=== PATIENT | female | born 1955 | race Caucasian/White ===

== ENCOUNTER → 2020-07-18 | Outpatient (CLI) | payer MEDICARE ==
[2020-07-05 14:57] VITALS: BP 118/72
[~2020-07-18] MED LIST: ACET500T68 PO; BACL20TA PO; CEPH500T PO; DAPT350V IV; DEXT10CA PO; DIAZ2TAB3 PO; DIAZ5TAB4 PO; FLUO40CA2 PO; FURO40TA4 PO; Hydrocodone/Acetaminophen PO; LACT1CAP19 PO; MERO500V24 IV; METH2.5T PO; OXYB5TAB10 PO; TRIA1TAB3 PO
[2020-07-18] MEDS: IOHEXOL 300 MG/ML 100ML VIAL. IV ONE (12:40)
--- NOTE | 2020-07-19 17:00 | RAD ---
Exam: CT abdomen/pelvis with intravenous contrast Indication: Liver abscess Comparison: CT abdomen and pelvis 06/30/2020 Technique: Helical CT imaging performed of the abdomen and pelvis after the intravenous administratio n of 75 mm Omnipaque 300 contrast. Sagittal and coronal reformats were obtained. One or more of the following individualized dose reduction techniques were utilized for this examinat ion: 1. Automated exposure control 2. Adjustment of the mA and/or kV according to patient size 3. Use of iterative reconstruction technique. Findings: Lower chest: Trace left pleural effusions and adjacent atelectasis, slightly increased on the. A 6 mm pulmonary nodule in the right lower lobe is unchanged. There is calcified granuloma in the left uppe r lobe. Mild emphysema. The heart is normal in size. There are coronary artery calcifications. Liver: There is a new anterior percutaneous drainage catheter in the left hepatic lobe. The previousl y seen abscess has decreased. Small residual fluid collection near the pigtail catheter measuring 3 x 1.7 cm. Previously 4.3 x 3.7 cm. Pneumobilia is redemonstrated. Gallbladder/Biliary Tree: Cholelithiasis and cholecystitis. Marked gallbladder wall thickening has sl ightly decreased. There is a tiny focus of gas in the gallbladder lumen. Increased dilation of common bile duct measuring 5 mm. There is a tiny hyperdensity within the common bile duct and intrapancreat ic portion suspicious for choledocholithiasis. There is edema along the pancreaticoduodenal groove. Pancreas: Unremarkable. Spleen: The spleen is enlarged measuring 16.2 cm cranial caudally. Adrenal Glands: Unchanged 2 cm intermediate density left adrenal nodule. Right adrenal gland is sukhjinder l. Kidneys/proximal ureters: Kidneys are normal in size and enhance symmetrically. No hydronephrosis. Pr oximal ureters are normal. Stomach and visualized portion of bowel: Small hiatal hernia. Stomach is normal. Vasculature: Abdominal aorta is normal in caliber. Lymph Nodes: No lymphadenopathy. Peritoneum and retroperitoneum: No free fluid or free air. Bones: No acute osseous abnormality. There is sequela of vertebroplasty at L1. Spinal stimulator ida ce noted in the dorsal thoracic canal. Impression: 1. Interval placement of percutaneous drain in the hepatic abscess, which has decreased in size. 2. Cholelithiasis and acute cholecystitis with marked gallbladder wall thickening, slightly decrease d from the prior exam. Suspected new choledocholithiasis with a 3 mm calculus in the intrapancreatic common bile duct. There is also a new tiny focus of gas in the gallbladder lumen. 3. Unchanged indeterminant left adrenal nodule. 4. Splenomegaly. 5. Unchanged 6 mm nodule in the right lower lobe. Electronically signed by: Jessica Andrea MD (07/19/2020 4:57 PM) [id number]
== END ==
LOC: CT 12:24
PROVIDERS: ATTEND Internal Medicine
DX: K75.0 Abscess of liver (principal); K80.00 Calculus of gallbladder with acute cholecystitis without obstruction; E27.8 Other specified disorders of adrenal gland; R16.1 Splenomegaly, not elsewhere classified; K83.8 Other specified diseases of biliary tract; J98.11 Atelectasis; R91.1 Solitary pulmonary nodule; J84.10 Pulmonary fibrosis, unspecified; J43.9 Emphysema, unspecified; I25.10 Atherosclerotic heart disease of native coronary artery without angina pectoris; K44.9 Diaphragmatic hernia without obstruction or gangrene
CPT/HCPCS: 74160; Q9967

== ENCOUNTER → 2020-07-18 | Outpatient (CLI) | payer MEDICARE ==
[2020-07-05 14:57] VITALS: BP 118/72
[~2020-07-18] MED LIST changes: +IOHEXOL 300 MG/ML 100ML VIAL. ONE
--- NOTE | 2020-07-18 13:15 | RAD ---
Site ID: [id number] EXAMINATION: US DPLX VENOUS EXTREMITY UPPER RT. HISTORY: Reason: rt arm swelling / Spl. Instructions: / History: . COMPARISON: None. FINDINGS: Color Doppler evaluation with venous waveforms and compressibility when applicable is examined and ap pears normal in the right internal jugular vein, right subclavian vein, axillary vein, brachial, radi al and ulnar veins. Also the cephalic vein appear patent. There is a PICC line in the right basilic v ein limiting the flow with no definitive thrombosis. IMPRESSION: No evidence of DVT in the right upper extremity. The right basilic vein is not well evaluated due to existing PICC line. Electronically signed by: Ady Cedeño MD (07/18/2020 1:13 PM) [id number]
== END ==
LOC: US 12:32
DX: R60.0 Localized edema (principal)
CPT/HCPCS: 93971

== ENCOUNTER → 2020-08-10 | Outpatient (CLI) | payer MEDICARE ==
[2020-07-05 14:57] VITALS: BP 118/72
[~2020-08-10] MED LIST changes: +IOHEXOL 240 MG/ML 50ML VIAL. PO ONE; +IOHEXOL 300 MG/ML 100ML VIAL. IV ONE; -IOHEXOL 300 MG/ML 100ML VIAL. ONE
--- NOTE | 2020-08-11 10:40 | KCIC ---
Exam: CT abdomen with intravenous contrast Indication: Liver abscess follow-up Comparison: CT abdomen 07/18/2020 Technique: Helical CT imaging performed of the abdomen and pelvis after the intravenous administratio n of 100 mL Omnipaque 300 contrast. Sagittal and coronal reformats were obtained. One or more of the following individualized dose reduction techniques were utilized for this examinat ion: 1. Automated exposure control 2. Adjustment of the mA and/or kV according to patient size 3. Use of iterative reconstruction technique. Findings: Lower chest: Mild atelectasis in the dependent lower lobes. Pleural effusions have resolved. Heart is normal in size. Liver: The percutaneous drainage catheter in the left hepatic lobe abscess has been removed. There is no remaining drainable fluid collection. A 9 mm hypodense lesion in the lateral left hepatic lobe an d 8 mm hypodense lesion in the inferior right hepatic lobe along the gallbladder fossa are unchanged from multiple exam and may be cysts or hemangiomas. There is an adjacent 1.2 x 0.6 cm area of hypoatt enuation in the inferior right hepatic lobe along the gallbladder fossa that is unchanged from 021 but may be new from 06/30/2020. This could be an additional small fluid collection, too small to d rain. Portal, superior mesenteric, and splenic veins are patent. Gallbladder/Biliary Tree: Cholelithiasis with gallbladder wall thickening is unchanged. There is pneu mobilia. Slightly increased mild dilation of the common bile duct. The suspected calculus in the dist al common bile duct is no longer visualized. Pancreas: Normal. Spleen: Unchanged mild splenomegaly. There are calcified splenic granulomas. Adrenal Glands: Unchanged 2 cm intermediate density left adrenal lesion. The right adrenal gland is n ormal. Kidneys: Kidneys are normal in size and enhancement. No hydronephrosis. Proximal ureters are unremark able Stomach and visualized bowel: Stomach and visualized portion of the small bowel and colon are unremar kable. No free fluid or free air. Vasculature: Abdominal aorta is normal in caliber. Lymph Nodes: No lymphadenopathy. Bones: No acute osseous abnormality. There are changes of vertebroplasty at L1. A pain pump is presen t with leads extending in the dorsal canal to T9-T10. Impression: 1. Interval removal of percutaneous drain in the hepatic abscess. There is no residual drainable flu id collection. There is a 1.2 cm hypodense area in the inferior right hepatic lobe along the gallblad hanna fossa that may be new from 06/30/2020. This could be an additional fluid collection but is too sma ll to drain. Recommend attention on follow-up CT. 2. Cholelithiasis and cholecystitis, unchanged from 07/18/2020. The small focus of gas in the gallbla dder lumen is no longer present. There is pneumobilia and mild dilation of the common bile duct. Susp ected calculus in the distal common bile duct on 07/18/2020 is no longer visualized. 3. Unchanged indeterminate left adrenal nodule. 4. Unchanged mild splenomegaly. Electronically signed by: Jessica Andrea MD (08/11/2020 10:38 AM) [id number]
== END ==
LOC: KCIC CT 13:07
PROVIDERS: ATTEND Internal Medicine
DX: K80.20 Calculus of gallbladder without cholecystitis without obstruction (principal); K75.0 Abscess of liver; J98.11 Atelectasis
CPT/HCPCS: 74160; Q9966; Q9967